=== PATIENT | male | born 2000 | race Caucasian/White ===

== ENCOUNTER 2021-02-26 23:31 | Emergency (ER) | payer OTHER, SELFPAY ==
[2021-02-26 23:38] VITALS: BP 122/94; PULSE 77; RESP 18; TEMP 36.6; O2SAT 98; BMI 23.0
--- NOTE | 2021-02-26 23:58 | W.ED.OVERDOS ---
HPI - Overdose General: Chief Complaint: Overdose Stated Complaint: Mushroom Ingestion Time Seen by Provider: 02/26/21 23:42 Source: patient Mode of arrival: ambulatory Limitations: no limitations History of Present Illness: HPI Narrative: Patient is a 21-year-old male who presents to ED today for evaluation following mushroom ingestion. Patient tells me he bought the mushrooms from an individual at [facility] and ingested them a few hours ago. Patient tells me he came to the ER because I thought I was going to . Patient tells me he is very tired. [place] He has not had any vomiting or diarrhea. He is not agitated. complaint: intentional overdose (intentional ingestion) Onset (ago): hour(s) Intent: other (wanted to get high) Context: Accidental Overdose: wanted to get high Treatments Prior to Arrival: none Review of Systems Const: Reports: fatigue; Denies: fever(s), chills, body aches or malaise Eyes: Denies: change in vision, blurry vision or photophobia Card: Denies: chest pain, palpitations, irregular heart rhythm, lightheadedness, syncope or dyspnea on exertion Resp: Denies: dyspnea, productive cough or pain on inspiration GI: Denies: abdominal pain, nausea, vomiting, heartburn or diarrhea : Denies: difficulty urinating or dysuria Musc: Denies: neck pain, back pain or joint pain Skin/Breast: Denies: rash Neuro: Denies: headache(s), numbness in extremities, weakness in extremities, sensory changes or dizziness Psych: Reports: visual hallucinations; Denies: depression or hopelessness Physical Exam Const: COMMON NORMALS: no acute distress, average body habitus, no limitations, healthy appearing, alert and well nourished ORIENTATION/CONSCIOUSNESS: Yes awake and Yes oriented to person OTHER: patient believes he is [place] in the [place] HENMT: COMMON NORMALS: normocephalic and atraumatic HEAD & SCALP: normal to inspection, normocephalic and atraumatic FACE & SINUS: normal facial exam Eye: COMMON NORMALS: Equal, round and reactive pupils present (dilated pupils but are equally responsive to light), EOMs intact bilaterally, conjunctivae normal and no scleral icterus CONJUNCTIVA: Yes conjunctivae normal PUPIL: Yes Equal, round and reactive pupils present (dilated pupils but are equally responsive to light) Resp: COMMON NORMALS: normal respiratory effort and clear to auscultation bilaterally AUSCULTATION: clear to auscultation bilaterally Cardio: COMMON NORMALS: regular rate and regular rhythm RATE: regular rate RHYTHM: regular rhythm GI: COMMON NORMALS: Normal to inspection, nondistended, normoactive bowel sounds present, Soft to palpation, non-tender, No hepatosplenomegaly present and no masses PALPATION: Yes Soft to palpation and Yes No hepatosplenomegaly present Neuro: OMAR COMA SCALE: document GCS findings [place] coma scale eye opening: Spontaneous [place] coma scale verbal response: Orientated Moar coma scale motor response: Obey commands Omar coma scale total score: 15 COMMON NORMALS: CN's II-XII intact bilaterally, moves all extremities, no focal motor deficits and no sensory deficits noted SENSORIUM/ORIENTATION: Yes alert and Yes oriented to person Skin: COMMON NORMALS: no rashes or lesions noted GENERAL SKIN EXAM: no rashes or lesions noted TRAUMA: no lacerations or abrasions Course ED course: Contacted Poison Control who stated just symptomatic care at this time. Could give benzos for agitation if needed. Vital Signs: Vital signs: Vital Signs Temperature 97.8 F 02/26/21 23:38 Pulse Rate 87 02/27/21 01:33 Respiratory Rate 18 02/27/21 01:33 Blood Pressure 132/76 02/27/21 01:33 Pulse Oximetry 97 02/27/21 01:33 MDM - Overdose MDM Narrative: Medical decision making narrative: Symptoms are consistent with a psilocybin mushroom ingestion. Will continue to monitor patient until felt he is stable for discharge home. Upon re-examination patient is feeling much better. He is requesting to go home. He is apologizing for his behavior earlier and is apologetic for coming to the emergency department. Patient tells me he was not trying to harm himself in any way. He is not suicidal or homicidal. Patient is alert and oriented x3 and is able to converse well. Patient has a ride home. Lab Data: Labs: Lab Results 02/27/21 02/27/21 02/27/21 Range/Units 00:20 00:30 00:30 WBC 10.9 H (4.0-10.0) 10^3/ uL RBC 5.15 (4.1-5.3) 10^6/u L Hgb 14.6 (11.7-16.6) g/dL Hct 44.0 (42.0-52.0) % MCV 85.4 (80-94) fl MCH 28.3 (28.0-34.0) pg MCHC 33.2 (30.0-36.0) g/dL RDW 13.3 (12.1-15.1) % Plt Count 279 (130-400) 10^3/c mm MPV 10.3 (7.4-10.4) fL Neut % (Auto) 80.2 % Lymph % (Auto) 13.6 % [place] % (Auto) 5.5 % Eos % (Auto) 0.1 % Baso % (Auto) 0.4 % Neut # (Auto) 8.77 H (1.8-7.7) 10^3/u L Lymph # (Auto) 1.5 (0.8-4.8) 10^3/u L [place] # (Auto) 0.6 (0.2-0.9) 10^3/u L Eos # (Auto) 0.0 (0.0-0.8) 10^3/u L Baso # (Auto) 0.0 (0.0-0.1) 10^3/u L Nucleated RBC % (a uto) 0 % Nucleated RBCs # 0.0 /100WBC Sodium 136 (136-145) mmol/L Potassium 3.7 (3.5-5.1) mmol/L Chloride 99 (98-107) mmol/L Carbon Dioxide 26 (22-29) mmol/L Anion Gap 14.7 (5-19) BUN 19 (6-20) mg/dL Creatinine 1.0 (0.7-1.2) mg/dL GFR Calculation 92.6 (90-130) mL/min Glucose 113 (65-115) mg/dL Calculated Osmolal ity 285 (285-295) mOsm/k g Calcium 9.4 (8.5-10.5) mg/dL Total Bilirubin 0.3 (0.15-1.2) mg/dL AST 40 (0-40) U/L ALT 46 H (0-41) U/L Alkaline Phosphata se 66 (40-130) IU/L Total Protein 7.7 (6.6-8.7) g/dL Albumin 4.9 (3.5-5.2) g/dL Globulin 2.8 (1.3-4.6) g/dL Salicylates 0.8 L (3-10) mg/dL Urine Opiates Scre en Negative (Negative) ng/mL Acetaminophen < 5.0 L (10-30) ug/mL Ur Barbiturates Sc reen Negative (Negative) ng/mL Ur Phencyclidine S crn Negative (Negative) ng/mL Ur Amphetamines Sc reen Negative (Negative) ng/mL U Benzodiazepines Scrn Negative (Negative) ng/mL Urine Cocaine Scre en Negative (Negative) ng/mL U Marijuana (THC) Screen Negative (Negative) ng/mL Ethyl Alcohol < 10 (0-10) mg/dL Discharge Plan Discharge Patient Disposition: Home Clinical Impression: Toxic effect of ingested mushroom Qualifiers: Encounter type: initial encounter Injury intent: accidental or unintentional Qualified Code(s): T62.0X1A - Toxic effect of ingested mushrooms, accidental (unintentional), initial encounter Condition: Stable Discharge Orders: Discharge ED (Routine); Ordered 02/27/21 Ordered By: Davin Christianson Coding Level of Care Code ED Surface Grinder for Bud Fwd Exam Comprehensive
[2021-02-27] MEDS: sodium chloride 0.9% 1,000 ML 999 ML IV (00:21)
[2021-02-27 00:38] LABS: Amphetamines Screen Urine Negative (Negative); Barbiturates Screen Urine Negative (Negative); Benzodiazepines Screen Urine Negative (Negative); Cocaine Screen Urine Negative (Negative); Opiate Screen Urine Negative (Negative); PCP Screen Urine Negative (Negative); THC Screen Urine Negative (Negative)
[2021-02-27 00:46] LABS: Basophils % 0.4 %; Eosinophils % 0.1 %; Hemoglobin 14.6 g/dL (11.7-16.6); Lymphocytes # 1.5 10^3/uL (0.8-4.8); Lymphocytes % 13.6 %; Mean Corpuscular HGB Conc 33.2 g/dL (30.0-36.0); Mean Corpuscular Hemoglobin 28.3 pg (28.0-34.0); Mean Corpuscular Volume 85.4 fl (80-94); Mean Platelet Volume 10.3 fL (7.4-10.4); Monocytes # 0.6 10^3/uL (0.2-0.9); Monocytes % 5.5 %; Neutrophils # 8.77 10^3/uL (1.8-7.7); Neutrophils % 80.2 %; Nucleated Red Blood Cells % 0 %; Platelet Count 279 10^3/cmm (130-400); Red Blood Count 5.15 10^6/uL (4.1-5.3); Red Cell Distribution Width 13.3 % (12.1-15.1); White Blood Count 10.9 10^3/uL (4.0-10.0)
[2021-02-27 01:06] LABS: Alanine Aminotransferase 46 U/L (0-41); Albumin Level 4.9 g/dL (3.5-5.2); Alkaline Phosphatase 66 IU/L (40-130); Anion Gap 14.7 (5-19); Aspartate Amino Transferase 40 U/L (0-40); Blood Urea Nitrogen 19 mg/dL (6-20); Calcium 9.4 mg/dL (8.5-10.5); Carbon Dioxide 26 mmol/L (22-29); Chloride 99 mmol/L (98-107); Globulin 2.8 g/dL (1.3-4.6); Glomerular Filtration Rate 92.6 mL/min (90-130); Glucose 113 mg/dL (65-115); Osmolality Calculated 285 mOsm/kg (285-295); Potassium 3.7 mmol/L (3.5-5.1); Salicylate 0.8 mg/dL (3-10); Sodium 136 mmol/L (136-145); Total Bilirubin 0.3 mg/dL (0.15-1.2); Total Protein 7.7 g/dL (6.6-8.7)
[2021-02-27 01:07] LABS: Acetaminophen < 5.0 ug/mL (10-30); Alcohol Level < 10 mg/dL (0-10)
[2021-02-27 01:33] VITALS: BP 132/76; PULSE 87; RESP 18; O2SAT 97
== END 2021-02-27 01:33 | disposition home or self-care (01) ==
PROVIDERS: Emergency Provider Physician Assistant
DX: T62.0X1A Toxic effect of ingested mushrooms, accidental (unintentional), initial encounter (principal)
CPT/HCPCS: 80053; 80306; 80307; 85025; 96360; 99283; J7030